=== PATIENT | female | born 1950 | race Caucasian/White ===

== ENCOUNTER → 2018-02-09 18:06 | Outpatient (REF) | payer OTHER, SELFPAY ==
--- NOTE | 2018-02-09 15:25 | PAPFT_PTH ---
PATIENT: Deni Colon LOC: [facility] U#:[id number] AGE/SX: 74/F ROOM: RE02/09/[address]: Radha Lang APRN : 1950 BED: DIS: SPEC #: [id number] RECD: 02/09/18 18:09 STATUS: SAMM BENNETT #: [id number] LUIS DANIEL: 02/09/18 15:[address]: Radha Lang DEPT: FORMERLY [facility], 1928–1983 Cytology RECD BY: Flora Muñoz Tissues: 1 - CX/ENDOCX FOR PAP SMEARS Procedures: PAP THIN PREP/UVM Screening HPV DNA PROBE Comments: [id number]
== END ==
LOC: LBN 18:06
PROVIDERS: PCP Nurse Practitioner; Visit Provider Nurse Practitioner
DX: Z12.4 Encounter for screening for malignant neoplasm of cervix (principal); Z11.51 Encounter for screening for human papillomavirus (HPV)
CPT/HCPCS: 88142; 87624

== ENCOUNTER 2018-06-24 10:04 | Outpatient (REF) | payer OTHER, SELFPAY | END 2018-06-24 10:24 | LOC: LBN 10:04 | PROVIDERS: PCP Nurse Practitioner; Visit Provider Student in an Organized Health Care Education/Training Program | DX: J02.9 Acute pharyngitis, unspecified (principal) | CPT/HCPCS: 87081 ==

== ENCOUNTER 2019-03-02 12:12 | Outpatient (REF) | payer OTHER, SELFPAY ==
[2019-03-04 12:10] LABS: HSV 1 DNA Result POSITIVE; HSV 2 DNA Result Negative; Specimen Description Vagina
== END 2019-03-02 12:32 ==
LOC: LBN 12:12
PROVIDERS: PCP Nurse Practitioner; Visit Provider Nurse Practitioner
DX: N89.8 Other specified noninflammatory disorders of vagina (principal)
CPT/HCPCS: 87529

== ENCOUNTER 2019-03-04 03:48 | Outpatient (CLI) | payer OTHER, SELFPAY ==
--- NOTE | 2019-03-04 07:47 | DI.MAMMO_ITS ---
SYMPTOM/DIAGNOSIS: SCREENING z12.39 MAMMOGRAM: 03/04 Mammograms were interpreted according to the usual protocol including computer analysis with CAD system, tomosynthesis and C view imaging. The breasts are of moderate density with fairly symmetrical distribution of fibroglandular tissue. No dominant mass or clumped microcalcification is identified in either breast. The current examination is compared with previous examinations including 01/2017 and there has been no gross interval change in appearance in comparison to the previous studies. CONCLUSION: No specific evidence of malignancy at this time. Routine screening examinations are suggested at yearly intervals in this age group according to the ACS/ACR guidelines. Category 1, breast density category B MQSA ASSESSMENT OF FINDINGS: Negative. Category 1. Patient will receive a letter notifying them of these results. BI-RADS category B. There are scattered areas of fibroglandular density.
== END 2019-03-04 04:08 ==
PROVIDERS: PCP Nurse Practitioner; Visit Provider Nurse Practitioner
DX: Z12.31 Encounter for screening mammogram for malignant neoplasm of breast (principal)
CPT/HCPCS: 77063; 77067

== ENCOUNTER 2019-09-14 14:21 | Outpatient (REF) | payer OTHER, SELFPAY ==
--- NOTE | 2019-09-14 13:45 | ENDOMET_PTH ---
PATIENT: Deni Colon LOC: [facility] U#:[id number] AGE/SX: 69/F ROOM: RE09/14/[address]: Gela Key : 1950 BED: DIS: 09/14/2019 SPEC #: [id number] RECD: 09/14/19 17:29 STATUS: SAMM REQ #: [id number] LUIS DANIEL: 09/14/19 13:[address]: Gela Key DEPT: Surgical Specimen RECD BY: Flora Muñoz ENTERED: 09/14/19 17:30 SP TYPE: Endomet OTHR DR: Radha Lang APRN Tissues: 1 - ENDOMETRIUM BX/CHAD Procedures: GROSS AND MICRO LEVEL 4 Comments: [id number]
== END 2019-09-14 14:41 ==
LOC: LBN 14:21
PROVIDERS: PCP Nurse Practitioner; Visit Provider Obstetrics & Gynecology Gynecology
DX: N85.8 Other specified noninflammatory disorders of uterus (principal); N95.0 Postmenopausal bleeding
CPT/HCPCS: 88305

== ENCOUNTER 2020-01-17 07:42 | Outpatient (CLI) | payer OTHER, SELFPAY ==
[2020-01-22 05:01] LABS: SARS-CoV-2 RNA Undetected (Undetected); SARS-CoV-2 Specimen Source Nasopharynx
== END 2020-01-17 08:02 ==
PROVIDERS: PCP Nurse Practitioner; Visit Provider Nurse Practitioner
DX: Z11.59 Encounter for screening for other viral diseases (principal)
CPT/HCPCS: U0003

== ENCOUNTER 2020-07-27 01:55 | Outpatient (CLI) | payer OTHER, SELFPAY ==
--- NOTE | 2020-07-27 06:30 | DI.MAMMO_ITS ---
EXAM: MAMMO SCREENING CLINICAL HISTORY: screening,z12.39. TECHNIQUE: Bilateral full field digital CC and MLO mammographic images were obtained with 3D tomosyn thesis and utilizing computer aided detection (CAD). COMPARISON: Prior mammograms dating back to 2010, the most recent being February 2019. FINDINGS: There are no spiculated masses nor malignant appearing microcalcification groups. Two small benign-ap pearing nodules upper outer quadrant left breast are unchanged from prior studies, consistent with sm all lymph nodes. There is no significant architectural distortion nor skin thickening-retraction. IMPRESSION: No radiographic evidence of malignancy. BI-RADS Category 1 - Negative Breast Density - Category B - Scattered areas of fibroglandular density Breast density Category C or D implies that the patient has dense breast tissue. Dense breast tissue can make it harder to find cancer on a mammogram. Dense breast tissue is also associated with an incr eased risk of breast cancer. This information about the result of the mammogram report was provided to the patient to raise their awareness. Use this report when you speak with the patient about their risks for breast cancer, which includes their family history. At that time, you may recommend additional screening tests (Ultrasoun d or MRI) as these tests may add significant information. A negative radiographic report should not delay biopsy if a dominant or clinically suspicious mass is present. Up to ten percent of cancers are not identified on mammography. A negative report may reinforce clinical impression. Adenosis and dense breasts may obscure an underlying neoplasm. False positive reports average 6 to 10%. Patient will receive a letter notifying them of these results.
[2020-07-27 09:42] LABS: HCT 40.2 % (36.0-46.0); HGB 13.3 g/dL (11.2-15.7); MCHC 33.1 % (32.0-36.0); MCV 96.6 fL (80-95); MPV 10.5 fL (8.0-11.0); Platelet Count 222 10^3/uL (130-400); RBC 4.16 10^6/uL (3.93-5.22); RDW 12.2 % (11.7-14.6); RDW-SD 43.5 fL; WBC 5.29 10^3/uL (4.4-10.8)
[2020-07-27 11:00] LABS: ALT 23 U/L (14-59); AST 17 U/L (15-37); Albumin 3.9 g/dL (3.4-5.0); Alkaline Phosphatase 52 U/L (46-116); Anion Gap 4.9 mmol/L (3-11); BUN 19 mg/dL (7-18); Bilirubin, Total 0.9 mg/dL (0.2-1.0); CO2 30.1 mmol/L (21.0-32.0); CREATININE 0.7 mg/dL (0.55-1.02); Calcium 8.8 mg/dL (8.5-10.1); Calculated LDL 86 mg/dL (<100); Chloride 104 mmol/L (98-107); Cholesterol 170 mg/dL (<200); Glucose 96 mg/dL (74-106); HDL Cholesterol 75 mg/dL (40-60); Potassium 4.2 mmol/L (3.5-5.1); Sodium 139 mmol/L (136-145); TSH (W/Ref FT4) 4.63 uIU/mL (0.36-3.74); Total Protein 6.6 g/dL (6.4-8.2); Triglyceride 45 mg/dL (<150)
[2020-07-27 11:17] LABS: FREE T4 0.98 ng/dL (0.76-1.46)
== END 2020-07-27 02:15 ==
PROVIDERS: PCP Nurse Practitioner; Visit Provider Nurse Practitioner
DX: Z12.31 Encounter for screening mammogram for malignant neoplasm of breast (principal); N63.21 Unspecified lump in the left breast, upper outer quadrant; E03.9 Hypothyroidism, unspecified; Z13.220 Encounter for screening for lipoid disorders; M85.88 Other specified disorders of bone density and structure, other site
CPT/HCPCS: 36415; 77063; 77067; 80053; 80061; 85027; 84439; 84443

== ENCOUNTER → 2020-09-12 01:39 | Outpatient (CLI) | payer OTHER, SELFPAY ==
--- NOTE | 2020-09-12 08:15 | DI.DEXA_ITS ---
EXAM: XR DEXA BONE DENSITY W/WO FRANTZ CLINICAL HISTORY: f/u osteopenia,M85.80 TECHNIQUE: Routine DEXA evaluation of the lumbar spine, hip, or forearm. COMPARISON: Prior study 2008 FINDINGS: Performed on a Hologic unit. Lateral image: No compression fracture evident. There is advanced disc space narrowing at L5-S1 leve l. There is an element of degenerative anterolisthesis of L4 upon L5. Lumbar Spine total T-score: -2.6. Prior 2009 reading was -0.9.. Hip total T-score:-2.6. Prior 2009 reading was -1.2. In addition, today's femoral ipsilateral femora l neck T-score reading is -3.1. Forearm total T-score: -3.3 IMPRESSION: Bone mineral density measures in the osteoporosis range. Fracture risk is high. Note: Any spine fracture indicates 5x risk for subsequent spine fracture and 2x risk for subsequent h ip fracture. World Health Organization criteria for BMD interpretation classify patients: Normal...... T- Score at or above -1.0 Osteopenic... T- Score between -1.0 and -2.5 Osteoporosis... T-Score at or below -2.5
== END ==
PROVIDERS: PCP Nurse Practitioner; Visit Provider Nurse Practitioner
DX: M81.0 Age-related osteoporosis without current pathological fracture (principal); Z00.00 Encounter for general adult medical examination without abnormal findings
CPT/HCPCS: 77080

== ENCOUNTER 2020-09-15 03:25 | Outpatient (CLI) | payer OTHER, SELFPAY | END 2020-09-15 03:26 | disposition home or self-care (01) | LOC: LBO 03:25 | PROVIDERS: PCP Nurse Practitioner; Visit Provider Nurse Practitioner | DX: M81.0 Age-related osteoporosis without current pathological fracture (principal); Z00.00 Encounter for general adult medical examination without abnormal findings | CPT/HCPCS: 36415; 82306 ==

== ENCOUNTER 2021-03-19 14:59 | Outpatient (CLI) | payer OTHER, SELFPAY ==
--- NOTE | 2021-03-19 14:30 | DI.RAD_ITS ---
Exam(s) XR HIP RT COMPLETE AP PELVIS EXAM: XR HIP RT COMPLETE AP PELVIS CLINICAL HISTORY: right hip pain. TECHNIQUE: 2D digital imaging was performed. COMPARISON: CR XR DEXA BONE DENSITY W/WO FRANTZ from 09/12/2020 FINDINGS: Two views: AP pelvis and lateral view right hip No evidence of pelvic nor hip fracture. No degenerative changes evident in either hip joint. Bone density normal. No osseous lesions. Sacroiliac joints appear unremarkable. IMPRESSION: No significant radiographic findings. DATA REPOSITORY: RADIATION DOSE DELIVERED:
== END 2021-03-19 15:00 | disposition home or self-care (01) ==
LOC: DIORS 14:59
PROVIDERS: PCP Nurse Practitioner; Referring Provider Nurse Practitioner; Visit Provider Physician Assistant
DX: M70.61 Trochanteric bursitis, right hip (principal)
CPT/HCPCS: 73502

== ENCOUNTER → 2022-02-26 01:52 | Outpatient (CLI) | payer OTHER, SELFPAY ==
--- NOTE | 2022-02-26 06:45 | DI.MRI_ITS ---
Exam(s) MR PELVIS WO EXAM: MR PELVIS WO CLINICAL HISTORY: R sided sacro-iliac pain, sacrococcygeal, M53.3. TECHNIQUE: Multiplanar multisequence MRI was performed. COMPARISON: No exams were available for comparison FINDINGS: MR examination of the pelvis was performed utilizing SI joint protocol. No mass or adenopathy identified in the visualized portions of the pelvis. The hips show normal bony signal and no evidence of significant ligamentous or tendinous abnormality. There is marked loss of disc height and disc signal at L4-5 and L5-S1. There appears to be central c anal spinal stenosis at L4-5. There are facet degenerative changes of the lower lumbar spine. Regarding the SI joints, there is no fluid in the SI joints. The iliac bones show normal signal bila terally. The sacral ala show predominantly normal signal with minimally increased signal in the ante rior inferior aspect of the left sacral ala measuring 13 millimeters in diameter and with no evidence of expansile process. No associated abnormal signal of the iliac bone is seen. Incidental note is made of multiple small sacral nerve root cysts bilaterally. IMPRESSION: No specific evidence of sacroiliitis. Minimal signal abnormality noted in left sacral ala is nonspec ific and may represent degenerative change. Note is made of degenerative changes of the lower lumbar spine with an apparent central canal spinal stenosis at L4-5. DATA REPOSITORY:
== END ==
PROVIDERS: PCP Nurse Practitioner; Visit Provider Family Medicine
DX: M53.3 Sacrococcygeal disorders, not elsewhere classified (principal); M47.817 Spondylosis without myelopathy or radiculopathy, lumbosacral region; M51.37 Other intervertebral disc degeneration, lumbosacral region
CPT/HCPCS: 72195

== ENCOUNTER 2022-09-10 02:23 | Outpatient (CLI) | payer OTHER, SELFPAY ==
[2022-09-10 08:33] LABS: Abs Immature Grans 0.01 10^3/uL (0.0-0.06); Absolute Basophil Count 0.05 10^3/uL (0.0-0.2); Absolute Lymphocyte Count 1.58 10^3/uL (1.2-3.4); Absolute Monocyte Count 0.45 10^3/uL (0.1-0.8); Absolute Neutrophil Count 3.42 10^3/uL (1.2-6.7); Basophils % 0.9; Eosinophils % 3.5; HCT 42.8 % (36.0-46.0); HGB 13.9 g/dL (11.2-15.7); Immature Grans % 0.2; Lymphocytes % 27.7; MCH 31.9 pg (27.0-33.0); MCHC 32.5 % (32.0-36.0); MCV 98 fL (80-95); MPV 9.5 fL (8.0-11.0); Monocytes % 7.9; Neutrophils % 59.8; Platelet Count 228 10^3/uL (130-400); RBC 4.36 10^6/uL (3.93-5.22); RDW 12.8 % (11.7-14.6); RDW-SD 46.5 fL; WBC 5.71 10^3/uL (4.4-10.8)
[2022-09-10 09:33] LABS: Total Iron Binding Capacity 294 ug/dL (250-450)
[2022-09-10 09:41] LABS: ALT 23 U/L (14-59); AST 20 U/L (15-37); Albumin 3.9 g/dL (3.4-5.0); Alkaline Phosphatase 47 U/L (46-116); Anion Gap 10.2 mmol/L (3-11); BUN 18 mg/dL (7-18); Bilirubin, Total 0.8 mg/dL (0.2-1.0); CO2 27.8 mmol/L (21.0-32.0); CREATININE 0.7 mg/dL (0.55-1.02); Calcium 8.8 mg/dL (8.5-10.1); Calculated LDL 100 mg/dL (<100); Chloride 104 mmol/L (98-107); Cholesterol 195 mg/dL (<200); Estimated GFR 92.98 (mL/min/1.73m2); Ferritin 92 ng/mL (8-252); Glucose 90 mg/dL (74-106); HDL Cholesterol 86 mg/dL (40-60); Potassium 3.9 mmol/L (3.5-5.1); Sodium 142 mmol/L (136-145); TSH (W/Ref FT4) 5.61 uIU/mL (0.36-3.74); Total Protein 7.1 g/dL (6.4-8.2); Triglyceride 48 mg/dL (<150); Vitamin B12 323 pg/mL (193-986)
[2022-09-10 10:03] LABS: FREE T4 0.94 ng/dL (0.76-1.46)
== END 2022-09-10 02:24 | disposition home or self-care (01) ==
LOC: LBO 02:23
PROVIDERS: PCP Nurse Practitioner; Referring Provider Nurse Practitioner; Visit Provider Nurse Practitioner
DX: E03.9 Hypothyroidism, unspecified (principal); L65.9 Nonscarring hair loss, unspecified; M81.0 Age-related osteoporosis without current pathological fracture; Z79.899 Other long term (current) drug therapy
CPT/HCPCS: 36415; 80053; 80061; 82607; 82728; 83550; 84439; 84443; 85025

== ENCOUNTER 2022-12-24 01:34 | Outpatient (CLI) | payer MEDICARE, SELFPAY ==
--- NOTE | 2022-12-24 06:45 | DI.MAMMO_ITS ---
Exam(s) MAMMO SCREENING EXAM: MAMMO SCREENING CLINICAL HISTORY: screening,z12.39 TECHNIQUE: Mammograms were interpreted according to the usual protocol including computer analysis w [email or web address] CAD system, tomosynthesis and C-view imaging. COMPARISON: 2012 through all 2020 FINDINGS: The breasts are composed of scattered fibroglandular densities, Breast Density category B. There has been interval development of several clustered calcifications in the upper outer quadrant o f the right breast. Spot magnification views requested for further evaluation. No suspicious masses seen. No suspicious masses or suspicious microcalcifications are seen in the left breast. No skin thickening or abnormal axillary lymph nodes are seen. There has been no significant change from prior exams. IMPRESSION: BI-RADS Category 0 - Assessment Incomplete: Need additional imaging evaluation Breast Density - Category B, scattered fibroglandular densities. A negative radiographic report should not delay biopsy if a dominant or clinically suspicious mass is present. Up to ten percent of cancers are not identified on mammography. A negative report may reinforce clinical impression. Adenosis and dense breasts may obscure an underlying neoplasm. False positive reports average 6 to 10%. Patient will receive a letter notifying them of these results.
== END 2022-12-24 01:54 ==
PROVIDERS: PCP Nurse Practitioner; Visit Provider Nurse Practitioner
DX: Z12.31 Encounter for screening mammogram for malignant neoplasm of breast (principal); R92.8 Other abnormal and inconclusive findings on diagnostic imaging of breast
CPT/HCPCS: 77063; 77067

== ENCOUNTER 2022-12-30 01:46 | Outpatient (CLI) | payer MEDICARE, SELFPAY ==
--- NOTE | 2022-12-30 | DI.US_ITS ---
Exam(s) MG MAMMO SCREEN CALL BACK UNI US BREAST RT COMPLETE EXAM: MG MAMMO SCREEN CALL BACK UNI CLINICAL HISTORY: F/U MAMMO, CALCIFICATIONS RT BREAST. TECHNIQUE: Craniocaudal and mediolateral oblique spot compression magnification digital Mammography views of the rightbreast followed by right breast ultrasound. COMPARISON: 2012 through 2020 FINDINGS: Mammography/Tomosynthesis: Masses/Architectural Distortion: None seen. Microcalcifictions: There is a new cluster of microcalcifications in the upper outer quadrant which h ave a mildly pleomorphic appearance. Biopsy is recommended. Skin Thickening/Nipple Retraction: None. Right breast US: Echotexture: Normal appearance of the glandular tissue. Shadowing: No suspicious foci. The calcifications seen on mammogram are not able to be identified by ultrasound. Cyst: None. Solid lesions: None seen. Ductal dilation: None. IMPRESSION: 1. New cluster of calcifications in the upper outer quadrant of the right breast. Stereotactic biopsy recommended. 2. The findings were discussed with the patient on the date of the examination. Findings were called to Lorraine Perez NP . BI-RADS Category 4 - Suspicious Abnormality: Biopsy should be considered Breast Density - Category B - Scattered areas of fibroglandular density A negative radiographic report should not delay biopsy if a dominant or clinically suspicious mass is present. Up to ten percent of cancers are not identified on mammography. A negative report may reinforce clinical impression. Adenosis and dense breasts may obscure an underlying neoplasm. False positive reports average 6 to 10%. Patient will receive a letter notifying them of these results.
== END 2022-12-30 02:06 ==
PROVIDERS: PCP Nurse Practitioner; Visit Provider Nurse Practitioner
DX: Z12.31 Encounter for screening mammogram for malignant neoplasm of breast (principal); R92.8 Other abnormal and inconclusive findings on diagnostic imaging of breast
CPT/HCPCS: 76642; 77063; 77067

== ENCOUNTER → 2023-02-20 14:39 | Outpatient (BNVA) | payer MEDICARE, SELFPAY | PROVIDERS: PCP Nurse Practitioner; Referring Provider Nurse Practitioner; Visit Provider Physical Therapy Assistant | DX: Z12.11 Encounter for screening for malignant neoplasm of colon (principal) ==

== ENCOUNTER 2023-03-07 08:09 | Day surgery (SDC) | payer MEDICARE, SELFPAY ==
--- NOTE | 2023-03-06 12:27 | PDOC.DSDIS_ITS ---
Date of service: 03/07/23 Time of Service: 09:29 Discharge Plan Disposition Patient Disposition: Home Condition: Good Discharge Details Reason For Visit: Colon cancer screening Attending Provider: Wendy Novak Primary Care Provider: Radha Lang Home Meds and New Rx's Prescriptions: No Action alendronate 70 mg tablet 70 mg PO QWEEK Qty: 12 3RF flu vacc [id number] 6mos up(PF) 60 mcg (15 mcg x 4)/0.5 mL syringe 0.5 ml IM ONCE Qty: 0.5 0RF multivitamin [Daily Vitamin] 1 EACH tablet 1 ea PO DAILY ascorbic acid (vitamin C) [Vitamin C] 500 MG tablet,chewable 500 mg PO DAILY fnjijtrb-aztj-ulilms-hyalur ac 1 EACH capsule 1 ea PO DAILY calcium carbonate-vitamin D3 [Calcium 600 + D(3)] 1 EACH tablet 1 ea PO DAILY aspirin [Adult Low Dose Aspirin] 81 mg tablet,delayed release (DR/EC) 81 mg PO DAILY Discharge Instructions Additional Instructions: DSU Colonoscopy Post- Op Instructions Instructions for Everyone who is given Anesthesia: For your safety, please do the following for the next twenty-four (24) hours: *Do Not operate a motor vehicle (car, truck, motorcycle, etc.) *Do Not drink alcoholic beverages or use any recreational drugs for the first 24 hours or while taking pain medications. The medications in your body may have a reaction that can be dangerous. *Do Not make any important decisions or sign any important papers. Findings: x1 small polyp Follow up: My office will send a letter in 2 to 3 weeks time with the results of the biopsy, and when we want you to repeat the colonoscopy, most likely 7 to 10 years time 1. No lifting over 20 pounds or strenuous activity for the first 24 hours after your procedure. After 24 hours there are no restrictions on your activity but you may feel fatigued for a few days. 2. After you arrive home you may have a light meal and return to your normal diet as you can tolerate it without feeling sick to your stomach. 3. You may have a bloated, gaseous feeling in your belly (abdomen) after a co lonoscopy. Passing gas and belching will help. Walking or lying down on your left side with your knees flexed may relieve the discomfort. Call the office at [phone] (Office) or [phone] (Hospital) right away if you notice any of the following: a.Vomiting of blood or ?coffee ground stools?. b.Rectal bleeding 1Tbsp, blood clots or continuous bleeding. c.Severe belly (abdominal) pain. d.A hard distended belly (abdomen) and an inability to pass gas. 4. Please don?t expect to have a normal BM (bowel movement) for 2-3 days after your procedure. 5. If there are questions regarding the findings of your procedure, please contact your doctor 6. If you are unable to contact your doctor with a problem, contact the hospital at [phone]. 7. Continue all your regular medications unless directed otherwise. I understand the above instructions and have no questions. Signature of Patient or Adult Escort Name of Responsible Adult Escort Signature of Nurse Date/Time Activity:: See above Diet:: See above Discharge Orders Discharge Orders: Discharge Order (Routine); Ordered 03/07/23 Ordered By: Wendy Novak DS: Diagnosis Discharge Diagnosis (1) Screening for malignant neoplasm of colon performed: Status: Acute Asessment and Plan: The patient is seen and examined after their colonoscopy.? The patient has been able to pass gas.? They are not having abdominal pain.? They have been able to tolerate liquids and a snack.? They do not have any nausea or vomiting.? They are not having any chest pain or shortness of breath.??? They are not having any rectal bleeding. Their vital signs have been stable-see nursing notes. We discussed findings during their colonoscopy, and any biopsies that were done/polyps that were removed. The patient will be sent a letter with any biopsy results, and when to repeat the colonoscopy.-see discharge instructions. Patient was given explicit instructions to follow-up regarding colonoscopy-refer to discharge instructions.? We reviewed resumption of medications. Patient verbalized understanding and discharged in stable and satisfactory condition- See nursing notes. (2) Premature atrial contraction: Status: Acute (3) Osteopenia: Status: Acute (4) Osteoarthritis: Status: Acute (5) Ductal carcinoma in situ (DCIS) of right breast: Status: Acute (6) Colon polyp: Status: Acute
--- NOTE | 2023-03-06 12:27 | W.COLOREPORT ---
Date of service: 03/07/23 Time of Service: 09:18 Colonoscopy Report Date of procedure: 03/07/23 Pre-op diagnosis general: Colorectal cancer screening Post-op diagnosis procedure note: other (Polyp and 50 cm) Surgeon: Wendy Novak Anesthesia Type: General:No Airway Estimated blood loss (mL): 1 Complications: None Disposition: same day Prep: Miralax/Dulcolax Retraction Time: 8 Procedure Description: After informed consent was obtained the patient was taken to the procedure room and placed in a left decubitous position. Monitors were applied and a time out was done. The patients name, date of , procedure, allergies to medications and metal in their body was reviewed. The patient was then sedated. Once sedated and comfortable a rectal exam was done. External exam was normal. Internal exam revealed a normal sphincter tone and no palpable masses. The scope was then introduced and retrofelexed. Grade 1 internal hemorrhoids were identified in all 3 columns with internal hemorrhoidal tags. The scope was then advanced to the cecum without difficulty. The colon is quite torturous. The TI and appendiceal orifice were identified. The prep was BBPS 3 in all segments for total of 9. The scope was then slowly retracted over 8 minutes back into the rectum. she had a flat 5 mm polyp that is removed with a cold biopsy at 50 cm. All specimen is retrieved and no bleeding is noted. There is no diverticula or AVMs.. The scope was removed and the patient was woken up and taken back to Same day surgery in stable condition. The patient tolerated the procedure well and there were no immediate complications. Follow up: The patient should follow up in 7-10 path pending, years, unless they develop changes in bowel habits or other new gastrointestinal complaints.
[2023-03-07 08:20] VITALS: BP 139/88; PULSE 71; RESP 16; TEMP 36.2; O2SAT 99
--- NOTE | 2023-03-07 08:36 | ANES.PREOP_ITS ---
General Info Date of Service Date Performed: 03/07/23 Height: 5 ft 7.75 in Weight: 67.2 kg Body Mass Index (BMI): 22.6 Surgical Procedure: Operation Date: 03/07/23 09:05 Proposed Procedure Side Surgeon conrado Novak, DO Meds Allergies and Home Medications Allergies Allergy/AdvReac Type Severity Reaction Status Date / Time levothyroxine sodium AdvReac Intermediate ? adv. Verified 03/07/23 08:28 reaction, headache, strange throat sensation Home Medication Medication Instructions Recorded ascorbic acid (vitamin C) 500 mg 500 mg PO DAILY 08/31/12 chewable tablet (Vitamin C) calcium carbonate 600 mg-vitamin 1 ea PO DAILY 08/31/12 D3 10 mcg (400 unit) tablet (Calcium 600 + D(3)) glucosamin 375 mg-chond 300 1 ea PO DAILY 08/31/12 mg-collagen 50 mg-hyaluronic acid 2 mg cap multivitamin (Daily Vitamin tablet) 1 ea PO DAILY 08/31/12 aspirin 81 mg tablet,delayed 81 mg PO DAILY 10/20/18 release (Adult Low Dose Aspirin) alendronate 70 mg tablet 70 mg PO QWEEK #12 tabs 09/05/22 Current Visit Medications: Current Medications Generic Name Dose Route Start Last Admin Trade Name Freq PRN Reason Stop Dose Admin Hyoscyamine Sulfate 0.125 mg 03/07/23 00:25 Hyoscyamine 0.125 Mg Sl/Oral/Chew SL 04/06/23 00:24 DIRECTED PRN Ringer's Solution 1,000 mls @ 80 mls/hr 03/07/23 06:00 IV 04/05/23 23:59 [facility] IV Miscellaneous Supplies 1 each 03/07/23 06:00 Iv Access IV 04/05/23 23:59 DIRECTED CARLOS Ondansetron HCl 4 mg 03/07/23 12:25 Ondansetron 4 Mg/2 Ml Vial IVP 04/06/23 12:24 Q4H PRN PRN Nausea / Vomiting Sodium Chloride 0 ml 03/07/23 06:00 Normal Saline Flush 10 Ml Syr IV 04/05/23 23:59 PRN PRN Sodium Chloride 0 ml 03/07/23 06:00 Normal Saline 10 Ml Vial IJ 04/05/23 23:59 DIRECTED PRN Sterile Water 0 ml 03/07/23 06:00 Water,Injection,Sterile 10 Ml Vial IJ 04/05/23 23:59 DIRECTED PRN PFSH Active Problems Active Problems: Problem Status Onset Code Screening for malignant neoplasm of colon performed Z12.11 Subclinical hypothyroidism 09/06/13 E03.9 Premature atrial contraction 09/02/13 I49.1 Osteopenia 08/31/08 M85.80 Osteoarthritis 09/08/15 M19.90 Bilateral primary osteoarthritis of knee M17.0 Genital herpes A60.00 Post-menopausal bleeding N95.0 History of total knee replacement Z96.659 Encounter for screening laboratory testing for COVID-19 virus Z11.59 Osteopenia M85.80 Screening for cholesterol level Z13.220 Routine medical exam Z00.00 History of bilateral knee arthroplasty Z96.653 Osteoporosis M81.0 Tendonitis involving right hip abductors M76.891 Iliotibial band syndrome, right leg M76.31 Sacro-iliac pain M53.3 Sacrococcygeal disorders, not elsewhere classified M53.3 Abnormal mammogram of right breast ~12/2022 R92.8 Breast calcification, right ~12/2022 R92.1 Ductal carcinoma in situ (DCIS) of right breast ~12/2022 D05.11 Medical History Medical History Dysfunctional uterine bleeding 2008, WORK-UP NEG BY DR. COWAN AT [facility] Heartburn rarely and controlled with OTC Per pt. 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 [place] Palpitations FOLLOWED BY [facility] IN [place], STRESS & ECHO NORMAL Solar lentigo (~01/2022) yearly skin checks with Derm Surgical History Surgical History ENDOMETRIAL BIOPSY (08/31/08) H/O breast biopsy mammo sterotactic bx right 01/27/23 high grade dcis Meniscectomy (08/31/01) LEFT KNEE POLYPECTOMY, SINUS Tobacco Smoking/Tobacco Use Status: Never Passive smoking exposure: No Second hand exposure: No Alcohol Alcohol Intake: current Alcohol intake frequency: a few times a month Alcohol type: wine Substance Use Substance use: Never Substance use type: does not use Prental History History 3 Para Hx # Term Pregnancies 3 Multiple births Hx # Pregnancies Ectopic pregnancies AB induced Hx Number of Living Children AB spontaneous Vital Signs and Lab Results Vital Signs Most Recent Vital Signs in EMR: Most Recent Vital Signs Temp Pulse Resp BP Pulse Ox 36.2 C L 71 16 139/88 99 03/07/23 08:20 03/07/23 08:20 03/07/23 08:20 03/07/23 08:20 03/07/23 08:20 Lab Results Blood Type / Crossmatch: No Data to Display Complete Blood Count: No Data to Display Complete Metabolic Panel: No Data to Display Liver Function Panel: No Data to Display Coagulation Panel: No Data to Display Cardiac Panel: No Data to Display Arterial Blood Gas: No Data to Display Venous Blood Gas: No Data to Display Pancreas Panel: No Data to Display Thyroid Panel: No Data to Display Infectious Disease: No Data to Display Blood Cultures: No Data to Display Toxicology Panel: No Data to Display Anesthesia Assessment and Plan Anesthesia History Personal History: No History of Anesthesia Complications (hx palpitations. sees neon sign mechanic elsewhere. has had workup) Family History: No Family History of Anesthesia Complications Exercise Tolerance Exercise Tolerance: Metabolic Equivalents>4 Pertinent Negatives Pertinent Negatives: No Symptoms of GERD Cardiac & Pulmonary Exam Cardiac Exam: Normal S1/S2 Heart Sounds Pulmonary Exam: Clear Bilateral Breath Sounds Implantable Cardiac Device Does patient have a Pacemaker or an ICD?: No Airway Exam Known Difficult Airway: No Mallampati Class: 2 Mouth Opening: Normal (> 3cm) Thyromental Distance: Greater than 3 cm Neck Range of Motion: Full ROM Neck Circumference: Normal Teeth Condition: Normal Dentition ASA Classification ASA Score: ASA 2 Emergency Case?: No NPO Status NPO Status: NPO Clears >2 hours, Solids >8 hours Anesthesia Plan Resuscitation Status: Full Code Anesthesia Technique: General Anesthesia Airway Planned: Natural Airway Monitors Used: Standard Monitors
[2023-03-07 08:38] VITALS: BMI 22.6
[2023-03-07] MEDS: Lactated Ringers 1,000 ML 80 ML IV (08:47)
--- NOTE | 2023-03-07 09:15 | BOWEL_PTH ---
PATIENT: Deni Colon LOC: [facility] U#:[id number] AGE/SX: 72/F ROOM: RE03/07/[address]: Wendy Novak : 1950 BED: DIS: 03/07/2023 SPEC #: [id number] RECD: 03/07/23 12:01 STATUS: SAMM RECristine #: [id number] LUIS DANIEL: 03/07/23 09:[address]: Wendy Novak DEPT: Surgical Specimen RECD BY: Virginia Joy ENTERED: 03/07/23 12:02 SP TYPE: Bowel OTHR DR: Radha Lang, CATHY Tissues: 1 - BIOPSY BOWEL Procedures: GROSS AND MICRO LEVEL 4 Comments: [id number]
[2023-03-07 09:23] VITALS: BP 92/66; PULSE 67; RESP 16; TEMP 36.3; O2SAT 97
--- NOTE | 2023-03-07 09:33 | W.ANESPOSTOP ---
Postoperative Evaluation Date, Time and Location Date Performed: 03/07/23 Time Performed: 09:33 Patient Location: Day Surgery Unit Vital Signs Most Recent Imported Vital Signs: Most Recent Vital Signs Temp Pulse Resp BP Pulse Ox 36.3 C L 67 16 92/66 L 97 03/07/23 09:23 03/07/23 09:23 03/07/23 09:23 03/07/23 09:23 03/07/23 09:23 Pain Score Most Recent Pain Score: Most Recent Pain Score Pain Level 0 03/07/23 08:20 Assessment Mental Status: Awake (Alert & Oriented to Patient Baseline) Airway and Respiratory Function: Patent airway with normal (patient baseline) respiratory exam Cardiovascular Function: Hemodynamically Stable Hydration Status: Adequately Hydrated Nausea & Vomiting: No Nausea or Vomiting Pain: Pt. Denies Any Pain Peripheral Nerve Block: Patient did not receive a nerve block
[2023-03-07 09:34] VITALS: BP 92/73; PULSE 60; O2SAT 97
[2023-03-07 09:51] VITALS: RESP 16; TEMP 36.4; O2SAT 97
[2023-03-07 10:07] VITALS: BP 140/86; PULSE 80; RESP 16; TEMP 36.4; O2SAT 100
== END 2023-03-07 10:35 | disposition home or self-care (01) ==
PROVIDERS: PCP Nurse Practitioner; Visit Provider Surgery
PROC: 0DJD8ZZ Inspection of Lower Intestinal Tract, Via Natural or Artificial Opening Endoscopic (ICD-10-PCS; CPT 45378; principal; 2023-03-07 09:00)
DX: Z12.11 Encounter for screening for malignant neoplasm of colon (principal); D12.5 Benign neoplasm of sigmoid colon
CPT/HCPCS: 45380; 88305

== ENCOUNTER → 2024-02-05 01:23 | Outpatient (CLI) | payer MEDICARE, SELFPAY ==
--- NOTE | 2024-02-05 15:33 | DI.DEXA_ITS ---
Exam(s) XR DEXA BONE DENSITY W/WO [facility]ANTZ EXAM: XR DEXA BONE DENSITY W/WO FRANTZ CLINICAL HISTORY: for bone density eval per title of test, osteoporosis, TECHNIQUE: [employer] C densitometer analysis of left hip, lumbar spine and left forearm. Lat eral survey image of the thoracic and lumbar spine. COMPARISON: DX FRANTZ from 07/12/2008 CR XR DEXA BONE DENSITY W/WO FRANTZ from 09/12/2020 CR XR HIP RT COMPLETE AP PELVIS from 03/19/2021 FINDINGS: Lateral view of the thoracic and lumbar spine shows no evidence of compression fractures. Bone mineral density measurements of the lumbar spine correspond to a total T-score of -2.1, in the o steopenic range. This represents a 7.3 percent increase from 2020 but a 14 percent decrease from 200 9. Bone mineral density measurements of the left hip correspond to a total T-score of -2.1. This repre sents a an increase of 8.6 percent compared to 2020 and a decrease of 13.7 percent compared to 2008 t he femoral neck T-score is -2.0, in the osteopenic range. Theleft forearm bone mineral density measurements correspond to a T-score of the distal 3rd of -3.2, in the osteoporotic range. This represents a 2.3 percent decrease from 2020. The forearm was not a nalyzed in 2008.. IMPRESSION: Osteopenia of the spine and hip. Osteoporosis of the wrist.
== END ==
PROVIDERS: PCP Student in an Organized Health Care Education/Training Program; Visit Provider Student in an Organized Health Care Education/Training Program
DX: M81.0 Age-related osteoporosis without current pathological fracture (principal); E03.9 Hypothyroidism, unspecified; Z91.89 Other specified personal risk factors, not elsewhere classified; M85.88 Other specified disorders of bone density and structure, other site; M85.852 Other specified disorders of bone density and structure, left thigh
CPT/HCPCS: 77080

== ENCOUNTER 2024-02-05 01:41 | Outpatient (CLI) | payer MEDICARE, SELFPAY ==
[2024-02-05 12:51] LABS: HCT 39.3 % (36.0-46.0); HGB 12.8 g/dL (11.2-15.7); MCHC 32.6 % (32.0-36.0); MCV 98 fL (80-95); MPV 9.4 fL (8.0-11.0); Platelet Count 222 10^3/uL (130-400); RDW-SD 46.5 fL; WBC 4.99 10^3/uL (4.4-10.8)
[2024-02-05 14:08] LABS: Anion Gap 6.8 mmol/L (3-11); BUN 11 mg/dL (7-18); CO2 28.2 mmol/L (21.0-32.0); CREATININE 0.7 mg/dL (0.55-1.02); Calcium 9.1 mg/dL (8.5-10.1); Chloride 105 mmol/L (98-107); Estimated GFR 92.41 (mL/min/1.73m2); Glucose 106 mg/dL (74-106); Potassium 3.8 mmol/L (3.5-5.1); Sodium 140 mmol/L (136-145); Vitamin D 25 Total 38.3 ng/mL (30-100)
== END 2024-02-05 01:42 | disposition home or self-care (01) ==
LOC: LBO 01:42
PROVIDERS: PCP Student in an Organized Health Care Education/Training Program; Visit Provider Student in an Organized Health Care Education/Training Program
DX: M81.0 Age-related osteoporosis without current pathological fracture (principal); E03.9 Hypothyroidism, unspecified; Z91.89 Other specified personal risk factors, not elsewhere classified; I10 Essential (primary) hypertension
CPT/HCPCS: 36415; 77080; 80048; 82306; 85027

== ENCOUNTER 2024-08-02 00:47 | Outpatient (CLI) | payer MEDICARE, SELFPAY ==
--- NOTE | 2024-08-02 08:00 | DI.US_ITS ---
Exam(s) US CAROTID EXAM: US CAROTID CLINICAL HISTORY: retinal vein occlusion,H34.9369. TECHNIQUE: Ultrasound carotids performed using grayscale, color-flow, and spectral Doppler imaging. COMPARISON: No exams were available for comparison FINDINGS: RIGHT CAROTID ARTERY: Plaque: None Velocity elevation: None. LEFT CAROTID ARTERY: Plaque: No visible plaque. Velocity elevation: None. VERTEBRAL ARTERIES: Antegrade flow. Measurements: R Bulb: 43.2cm/s PS / 16.2cm/s ED R CCA: 51.4cm/s PS / 21.7cm/s ED R ECA: 54cm/s PS / 16.5cm/s ED R ICA Prox: 55.7cm/s PS / 26cm/s ED R ICA Mid: 63.8cm/s PS / 32.8cm/s ED R ICA Distal: 48.8cm/s PS /26.4cm/s ED R Vert: 36.7cm/s PS / 14.5cm/s ED R SVR: 1.2 R DVR: 1.5 L Bulb: 50cm/s PS / 19.6cm/s ED L CCA: 59.8cm/s PS / 28.4cm/s ED L ECA: 57.9cm/s PS / 17.5cm/s ED L ICA Prox: 64.4cm/s PS / 33.4cm/s ED L ICA Mid: 60.8cm/s PS / 31cm/s ED L ICA Distal: 78.9cm/s PS / 41.2cm/s ED L Vert: 42.6cm/s PS / 20.4cm/s ED L SVR: 1.3 L DVR: 1.4 IMPRESSION: No evidence for hemodynamically significant carotid stenosis. No significant atherosclerotic plaque is visible. Criteria for Carotid Stenosis: Normal: ICA PSV <125 cm/s no plaque or intimal thickening is visible. <50% stenosis: ICA PSV <125 cm/s and plaque or intimal thickening is visible. 50-69% stenosis: ICA PSV is 125-250 cm/s and plaque is visible. >70% stenosis to near occlusion: ICA PSV >250 cm/s with visible plaque and luminal narrowing. DATA REPOSITORY:
== END 2024-08-02 01:07 ==
LOC: DI 00:47
PROVIDERS: PCP Nurse Practitioner Adult Health; Visit Provider Nurse Practitioner Family
DX: H34.8122 Central retinal vein occlusion, left eye, stable (principal)
CPT/HCPCS: 93880

== ENCOUNTER 2024-08-02 01:23 | Outpatient (CLI) | payer MEDICARE, SELFPAY ==
[2024-08-02 09:29] LABS: Hemoglobin A1C 5.8 % (<5.7)
[2024-08-02 10:04] LABS: Calculated LDL 89 mg/dL (<100); Cholesterol 171 mg/dL (<200); HDL Cholesterol 68 mg/dL (40-60); Triglyceride 70 mg/dL (<150)
== END 2024-08-02 01:24 | disposition home or self-care (01) ==
PROVIDERS: PCP Nurse Practitioner Adult Health; Referring Provider Nurse Practitioner Family; Visit Provider Nurse Practitioner Family
DX: H34.8122 Central retinal vein occlusion, left eye, stable (principal)
CPT/HCPCS: 80061; 83036; 93880

== ENCOUNTER 2025-03-08 08:08 | Outpatient (CLI) | payer MEDICARE, SELFPAY ==
[2025-03-08] MEDS: Barium Sulfate 2% W/V-Berry Smoothie 450 ML BTL PO (08:02)
[2025-03-08] MEDS: Barium Sulfate 2% W/V-Creamy Vanilla Smoothie 450 ML BTL PO (08:03)
[2025-03-08 08:10] LABS: Estimated GFR 78.24 (mL/min/1.73m2)
[2025-03-08] MEDS: Normal Saline - Diluent 50 ML VIAL IJ (10:08)
[2025-03-08] MEDS: Normal Saline Flush 10 ML SYR IVP (10:09)
[2025-03-08] MEDS: Omnipaque 350 MG/ML 100 ML BTL IJ (10:09)
--- NOTE | 2025-03-08 10:15 | DI.CT_ITS ---
Exam(s) CT ABDOMEN PELVIS W EXAM: CT ABDOMEN PELVIS W CLINICAL HISTORY: ? acute process, mass, hernia,llq abd pain, h/o breast ca,r10.32. TECHNIQUE: Imaging Protocol: Axial computed tomography images with coronal and sagittal reformatted images were created and reviewed CONTRAST MATERIAL: Intravenous: Omnipaque-350 75cc Oral: Yes. Oral contrast was also administered for bowel opacification. COMPARISON: No exams were available for comparison FINDINGS: VISUALIZED LUNG BASES: No significant nodules nor pleural effusions evident. Calcified granuloma in the extreme right lung base is noted. ABDOMEN: There is no ascites. LIVER: There are total of 4 small sub cm hypodensities in the liver which all exhibit benign appearances, probably benign cysts. There are no dilated intrahepatic ducts. GALLBLADDER/BILIARY: No obvious gallbladder pathology. CBD is not dilated. PANCREAS: No evidence of pancreatic mass nor dilatation of the pancreatic duct. SPLEEN: Spleen is not enlarged. No obvious intrasplenic lesions. Splenic and portal veins are patent. ADRENALS: There are no significant adrenal masses. KIDNEYS:Right kidney unremarkable.. On the left side there is slight dilatation of the left renal pelvis and left kidney infundibulum I. The left ureter below the UPJ is not dilated. There are no radiopaque calculi in the lower left ureter nor within the urinary bladder lumen. ABDOMINAL AORTA: Abdominal aorta is not enlarged. Also no iliac artery aneurysms. No dissection. LYMPH NODES:There is no retroperitoneal nor paraaortic adenopathy. ABDOMINAL WALL: No evidence of significant anterior abdominal wall nor inguinal hernia. GI: There is no evidence of bowel obstruction, free air, nor abscess. PELVIS: GI: No evidence of appendicitis.There is abundant fecal material noted in the colon. LYMPH NODES: There is no intrapelvic nor inguinal adenopathy. REPRODUCTIVE: There are dilated veins on the left side of the uterus-left adnexa which drain into a prominent left gonadal vein which itself drains into a normal appearing patent pre aortic left renal vein. These findings are consistent with element of pelvic congestion syndrome. No solid masses in the adnexal regions. There is no free fluid in the pelvis URINARY BLADDER: No calculi nor obvious masses evident OSSEOUS: No fractures and no significant osseous lesions. There is mild degenerative anterolisthesis of L4 upon L5. No disc space narrowing at this level. There is advanced chronic disc space narrowing at L5- S1 level. IMPRESSION: 1. There are a moderate amount of dilated left periuterine left adnexal veins which drain into a moderately prominent but patent left gonadal vein which itself drains into a patent pre aortic left renal vein. Findings are consistent with an element of pelvic congestion syndrome. 2. There is mild dilatation of left renal pelvis and calices but no dilatation of the left ureter. May represent mild left UPJ level obstruction. There are no radiopaque calculi in the kidneys and ureters. No radiopaque calculi seen in the urinary bladder. 3. Small benign-appearing cysts in the liver. 4. Abundant fecal material in the colon. Correlation with any clinical signs of constipation recommended. There is no significant colonic diverticular disease. RADIATION DOSE DELIVERED: 324.61mGy.cm Total DLP DATA REPOSITORY: All CT scans at this facility are submitted to the National Radiology Data Registry (NRDR) Dose Index Registry (DIR) with the [employer] ([employer]). RADIATION OPTIMIZATION: All CT scans at this facility use at least one of these dose optimization techniques: automated exposure control; mA and/or kV adjustment per patient size (includes targeted exams where dose is matched to clinical indication); or iterative reconstruction.
== END 2025-03-08 08:28 ==
LOC: DI 08:08
PROVIDERS: PCP Nurse Practitioner Adult Health; Visit Provider Nurse Practitioner Adult Health
DX: R10.32 Left lower quadrant pain (principal); Z85.3 Personal history of malignant neoplasm of breast; R10.12 Left upper quadrant pain; N94.89 Other specified conditions associated with female genital organs and menstrual cycle
CPT/HCPCS: 74177; 82565; J3490